=== PATIENT | male | born 1995 | race Caucasian/White ===

== ENCOUNTER 2024-01-09 15:03 | Emergency (ER) | payer SELFPAY ==
[~2024-01-09] VITALS: Ht 170.2 cm; Wt 61.0 kg
[2024-01-09 15:09] VITALS: BP 141/87; PULSE 99; RESP 16; TEMP 98.4; O2SAT 100
== END 2024-01-09 23:11 | disposition left against medical advice (07) ==
LOC: ER 15:03
DX: J06.9 Acute upper respiratory infection, unspecified (principal)
CPT/HCPCS: 87070; 87430; 99283